=== PATIENT | male | born 1990 | race Caucasian/White ===

== ENCOUNTER 2019-08-11 17:33 | Emergency (ER) | payer BC, OTHER, SELFPAY ==
[~2019-08-11] VITALS: Ht 165.1 cm; Wt 81.8 kg
[2019-08-11 20:22] VITALS: BP 142/89
--- NOTE | 2019-08-11 20:30 | REP ---
RIGHT FOOT, FOUR VIEWS: Four views of the right foot are performed. There are nondisplaced fractures of the 5th middle phalanx and distal phalanx. I see no other evidence of acute fracture, dislocation or intrinsic bone disease. Electronically Signed by Shun Neumann MD 08/12/2019 03:42 P
== END 2019-08-11 20:52 | disposition home or self-care (01) ==
LOC: M ED 17:33
DX: S92.524A Nondisplaced fracture of middle phalanx of right lesser toe(s), initial encounter for closed fracture (principal); S92.534A Nondisplaced fracture of distal phalanx of right lesser toe(s), initial encounter for closed fracture; X58.XXXA Exposure to other specified factors, initial encounter; Y92.099 Unspecified place in other non-institutional residence as the place of occurrence of the external cause; Y93.9 Activity, unspecified; Y99.9 Unspecified external cause status